=== PATIENT | male | born 1960 | race Caucasian/White ===

== ENCOUNTER 2021-10-22 08:02 | Emergency (ER) | payer BC ==
[~2021-10-22] VITALS: Ht 172.7 cm; Wt 88.0 kg
[2021-10-22 08:44] VITALS: BP 173/93
[2021-10-22] MEDS ORDERED: oxyCODONE/APAP 5/325 1 TAB TABLET PO ONE (09:00)
[2021-10-22] MEDS ORDERED: KETOROLAC 60 MG/2 ML VIAL. IM ONE (09:00)
[2021-10-22] MEDS ORDERED: DEXAMETHASONE 4 MG TABLET PO ONE (09:00)
[2021-10-22] MEDS ORDERED: diazePAM 5 MG TABLET PO ONE (09:00)
--- NOTE | 2021-10-22 09:15 | PHYS DOC ---
Past Medical History Past Surgical History: No Surgical History Adult General Chief Complaint Chief Complaint: LOWER EXT PAIN HPI HPI Patient is a 61 year old male presenting to the emergency department for evaluation of pain that shoots from the back of his upper right leg down to his ankle that has been going on for the past 3 days. He said there was no known injury or overuse but he was trimming brisket and says that when he started feeling the pain and it has been getting worse over the past 3 days to the point that it hurts to ambulate but he still is able to ambulate. He denies weakness numbness tingling saddle anesthesia bowel or bladder incontinence. Patient says that he has had sciatica before in the past but has been treated by chiropractor. He is in no acute distress with normal vital signs other than hypertension noted. Review of Systems Review of Systems Constitutional: Denies fever or chills [] Respiratory: Denies cough or shortness of breath [] Cardiovascular: No additional information not addressed in HPI [] GI: Denies abdominal pain, nausea, vomiting, bloody stools or diarrhea [] Musculoskeletal: Denies back pain or joint pain [] Integument: Denies rash or skin lesions [] Neurologic: Denies headache, focal weakness or sensory changes [] All other systems were reviewed and found to be within normal limits, except as documented in this note. Current Medications Current Medications Current Medications Medications (Trade) Dose Ordered Sig/[facility] Start Time Stop Time Status Last Admin Dose Admin Dexamethasone (Decadron) 10 mg 1X ONCE 10/22/21 09:00 10/22/21 09:01 DC 10/22/21 09:05 10 MG Diazepam (Valium) 5 mg 1X ONCE 10/22/21 09:00 10/22/21 09:01 DC 10/22/21 09:05 5 MG Ketorolac Tromethamine (Toradol Im) 60 mg 1X ONCE 10/22/21 09:00 10/22/21 09:01 DC 10/22/21 09:00 60 MG Oxycodone/ Acetaminophen (Percocet 5/325) 2 tab 1X ONCE 10/22/21 09:00 10/22/21 09:01 DC 10/22/21 09:04 2 TAB Allergies Allergies Allergies Coded Allergies Type Severity Reaction Last Updated Verified No Known Drug Allergies 10/22/21 No Physical Exam Physical Exam Constitutional: Well developed, well nourished, no acute distress, non-toxic appearance. [] Cardiovascular:Heart rate regular rhythm, no murmur [] Lungs & Thorax: Bilateral breath sounds clear to auscultation [] Abdomen: Bowel sounds normal, soft, no tenderness, no masses, no pulsatile masses. [] Skin: Warm, dry, no erythema, no rash. [] Back: No tenderness, no CVA tenderness. [] Extremities: No tenderness, no cyanosis, no clubbing, ROM intact, no edema. [] Neurologic: Alert and oriented X 3, normal motor function, normal sensory function, no focal deficits noted. 5 out of 5 strength in big toe ankle and knee flexion extension. Patient does limp on his gait but he says it is due to pain and not weakness. Current Patient Data Vital Signs Vital Signs Date Time Temp Pulse Resp B/P (MAP) Pulse Ox O2 Delivery O2 Flow Rate FiO2 10/22/21 09:04 99 10/22/21 08:44 98.0 80 18 173/93 (119) 98.0 EKG EKG [] Radiology/Procedures Radiology/Procedures [] Course & Med Decision Making Course & Med Decision Making Patient has symptoms consistent with a lumbar radiculopathy as he has no pain with specific joint mobilization. He has no red flag signs or symptoms necessitating emergent MRI and I explained that x-ray and CT would likely be of no benefit given there is no traumatic injury and there is no neurologic deficits. Patient verbalized understanding and agreed to having his symptoms managed in the emergency department and I will discharge him with supportive medications. I told the follow-up with his primary care provider within 2 to 3 days for recheck and that he would have to come back to emergency department if he starts to have weakness numbness incontinence or other concerns. Patient aware and agreeable with plan for discharge and verbalized understanding of the above instructions. Dragon Disclaimer Dragon Disclaimer This electronic medical record was generated, in whole or in part, using a voice recognition dictation system. Departure Departure Impression: Primary Impression: Lumbar radiculopathy, acute Disposition: HOME / SELF CARE / HOMELESS Condition: STABLE Patient Instructions: Sciatica, [id number] Scripts Prednisone (PREDNISONE) 50 Mg Tablet 1 TAB PO DAILY, #3 TAB Start 10/24 Prov: YOAN MCCARTY DO 10/22/21 Ibuprofen (IBUPROFEN) 600 Mg Tablet 600 MG PO PRN Q6HRS PRN for INFLAMMATION, #30 TAB Prov: YOAN MCCARTY DO 10/22/21 Oxycodone/Apap 5-325 (PERCOCET 5-325 MG TABLET ) 1 Each Tablet 1 TAB PO PRN Q6HRS PRN for PAIN, #14 TAB 0 Refills Prov: YOAN MCCARTY DO 10/22/21 YOAN MCCARTY DO October 22, 2021 09:15
[2021-10-22] MEDS ORDERED: IBUP-1007 PO (09:27)
[2021-10-22] MEDS ORDERED: PRED50TA PO (09:27)
[2021-10-22] MEDS ORDERED: OXYC1TAB15 PO (09:27)
== END 2021-10-22 09:48 | disposition home or self-care (01) ==
LOC: ER 08:02
DX: M54.16 Radiculopathy, lumbar region (principal)
CPT/HCPCS: 96372; 99284; J1885